=== PATIENT | male | born 1955 | race Caucasian/White ===

== ENCOUNTER 2020-01-12 11:11 | Observation (INO) ==
--- NOTE | 2020-01-05 13:20 | History and Physical Report ---
DATE OF ADMISSION: 01/12/2020 CHIEF COMPLAINT: Persistent left knee pain and discomfort. HISTORY OF PRESENT ILLNESS: The patient is a 64-year-old gentleman who presents for surgical treatment of his left knee. He has got a long history of left knee pain and discomfort dating back to over 10 years ago. He has been seeing my partner, Dr. Leger, for this over the years. He has been through extensive conservative treatment including both steroid shots and viscosupplementation, which have become less successful over time. Pain is a little bit more medial, but mostly global. The more he walks, the more it hurts. He has a limited walking tolerance. He has difficulty going up and down stairs. He has lost significant weight about 45 pounds recently trying to make his knee better. Unfortunately, his symptoms have not improved. Denies any groin pain. PAST MEDICAL HISTORY: Significant for: 1. Atrial fibrillation, on Coumadin. 2. BPH. 3. Elevated cholesterol. 4. Hypertension. 5. Osteoarthritis. PAST SURGICAL HISTORY: Includes: 1. Rotator cuff for repair. 2. Colonoscopy. 3. EGD. 4. Oral surgery. 5. Hernia repair. 6. Meniscal surgery. ALLERGIES: PENICILLIN. CURRENT MEDICATIONS: Include: 1. Aspirin. 2. Lovastatin. 3. Losartan. 4. Niacin. 5. Omeprazole. 6. Tamsulosin. 7. Coumadin. SOCIAL HISTORY: A 64-year-old male. He is not , but does have a girlfriend. He has family that can assist in his care. Denies any history of smoking. FAMILY HISTORY: Noncontributory. REVIEW OF SYSTEMS: Significant for atrial fibrillation, on Coumadin. Denies any chest pain or shortness of breath. No history of DVT or PE. No known bleeding problems. No dysuria. PHYSICAL EXAMINATION: GENERAL: Shows a pleasant, middle-aged male, looks to be in pretty good health. HEENT: Benign. NECK: Supple, no lymphadenopathy. LUNGS: Clear to auscultation. HEART: Has an irregularly irregular rhythm. Normal rate. ABDOMEN: Fairly large with a large pannus. Otherwise, benign. EXTREMITIES: Examination of the extremities reveals the patient walks independently. He has got varus alignment to his left knee. He has got a small healed abrasion over his tibial tubercle. Small knee effusion. He is tender over the medial joint line. Range of motion is 5-125 degrees. There is no instability. He has no pain with hip motion. X-RAYS: X-rays of the left knee were reviewed. It shows advanced left knee medial compartment arthritis. He has got complete loss of his medial joint space. He has got a little bit of tibial femoral subluxation. He has got osteophytes primarily in the medial compartment. ASSESSMENT: A 64-year-old male with advanced left knee degenerative joint disease. Also, has a history of chronic atrial fibrillation, obesity, hypertension, and elevated cholesterol. He has had a weight loss recently, but continues to be limited by his symptoms. He would like to have his knee fixed. PLAN: We will take him to the operating room and do a left total knee replacement. The risks and benefits of this procedure were explained to the patient including but not limited to DVT, PE, , infection, neurological injury, vascular injury, bleeding problem, pain, limited range of motion, stiffness, failure to relieve his symptoms, incomplete relief of symptoms, need for further surgery in the future, fracture, leg length inequality, nerve palsy, need for revision surgery. The patient understands and desires to proceed. Informed consent was obtained. He is on Coumadin, will stop it 5 days preop. We will need to check a stat PT and INR on the morning of surgery. We will start him on this immediately postop. As far as discharge plans, he is planning to be discharged home using the [facility]. He has a friend, I believe, that works for them and will assist in his care.
--- NOTE | 2020-01-05 13:59 | Anesthesiology Consultation ---
Date of Service January 05, 2020 Assessment & Plan (1) Encounter for pre-operative examination: Chart Review Chart Review: Acceptable Risk for Surgery (pending Covid test results from 01/03) and Patient NOT seen in Pre Admission Testing Per nursing assessment 01/05/20- - pt has had no recent travel. No known contact with PUIs or Covid positive people. No current Covid related symptoms. Pt had Covid testing done 01/03 per surgeon request for pre op- results pending. History Surgery Operation Date: 01/12/20 08:50 Proposed Procedures p Left Total Knee Arthroplasty - Joel Hubbard MD Height/Weight Height: 5 ft 6 in Weight: 115.212 kg Allergies Allergy/AdvReac Type Severity Reaction Status Date / Time Penicillins Allergy Unknown Unknown in Verified 01/05/20 12:39 childhood acetaminophen [From Percocet] AdvReac Dizziness Verified 01/05/20 12:40 oxycodone [From Percocet] AdvReac Dizziness Verified 01/05/20 12:40 Medications Home Medications Medication Instructions Recorded Confirmed Last Taken aspirin 81 mg PO QPM 09/21/18 01/05/20 08/29/19 21:00 losartan 100 mg PO QAM 09/21/18 01/05/20 08/29/19 lovastatin 40 mg PO QPM 09/21/18 01/05/20 08/29/19 niacin [Slo-Niacin] 500 mg PO QPM 09/21/18 01/05/20 08/29/19 warfarin 2.5 mg PO 2XWK 09/21/18 01/05/20 08/24/19 warfarin 5 mg PO 5XWK 09/21/18 01/05/20 08/24/19 tamsulosin 0.4 mg PO QPM 08/22/19 01/05/20 08/29/19 Wheeled Walker #1 ea 12/12/19 12/12/19 Unknown Past Medical History Medical History 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 BPH (benign prostatic hyperplasia) Hyperlipidemia Hypertension Left knee DJD On anticoagulant therapy on warfain daily Osteoarthritis Past Family History Family History Other No family history of adverse response to anesthesia Past Surgical History Surgical History History of colonoscopy History of esophagogastroduodenoscopy (EGD) History of repair of right rotator cuff History of right inguinal hernia repair History of tooth extraction History of wisdom tooth extraction Hx of left inguinal hernia repair Status post medial meniscus repair right Social History Smoking Status: Former smoker tobacco type: smokeless tobacco Do You Dip or Chew Tobacco: Yes Hx Alcohol Use: No Hx Substance Use: No substance use type: does not use Testing Laboratory Results Blood Type O Negative 12/28/19 09:32 Antibody Screen NEGATIVE 12/28/19 09:32 Laboratory Tests 12/28/19 12/28/19 12/28/19 09:32 09:32 09:32 WBC 3.99 L Hgb 14.9 Hct 44.0 Plt Count 180 PT 37.8 H INR 3.9 H Sodium 139 Potassium 4.8 Chloride 107 Carbon Dioxide 26 BUN 17 Creatinine 1.12 Glucose 94 Electrocardiogram Date: 12/28/19 Findings: + AFIB @ (84) Nonspecific ST abnormality Chest X-Ray Date: 12/28/19 Findings: + NAD Atherosclerosis of the aortic arch.
[~2020-01-12 11:11] MED LIST: ACETAMINOPHEN 500 MG TAB PO SCH; BUPIVACAINE 0.25% 30 ML VIAL ONE; BUPIVACAINE 0.5 % 5 MG/1 ML PF 10ML VIAL ONE; BUPIVACAINE LIPOSOME/PF 266 MG, BUPIVACAINE/EPINEPHRINE 50 ML, SODIUM CHLORIDE 0.9% 30 ... INFIL SCH; CEFAZOLIN 2000MG 2,000 MG/15 ML SYR IV SCH; FAMOTIDINE 20 MG TAB PO SCH; GABAPENTIN 300 MG CAP PO SCH; LR 500ML BOLUS, THEN 15ML/HR IV SCH; LR 60ML/HR IV SCH; METOCLOPRAMIDE HCL 10 MG TABLET PO SCH; SCOPOLAMINE 1.5 MG TDSY TD SCH; TRANEXAMIC ACID 1,000 MG **IV Intra-op IV SCH; TRANEXAMIC ACID 1,000 MG x 1 **For Topical Use TOP SCH
[2020-01-12] MEDS ORDERED: MIDAZOLAM HCL 1 MG/ML 2ML VIAL ONE (11:34)
[2020-01-12] MEDS ORDERED: fentaNYL citrate 100 MCG/2 ML VIAL ONE (11:35)
[2020-01-12 12:11] LABS: INR 1.2 (0.9-1.1); Partial Thromboplastin Ratio 1.1; Partial Thromboplastin Time 29.5 Seconds (21.0-31.0); Prothrombin Time 12.4 Seconds (9.0-12.0)
[2020-01-12] MEDS ORDERED: ePHEDrine sulfate 50 MG/ML AMP IV PRN (12:27)
[2020-01-12] MEDS ORDERED: ATROPINE SULFATE 0.1 MG/ML 10ML SYR IV PRN (12:27)
--- NOTE | 2020-01-12 12:42 | History & Physical Bridge Note ---
Date of Service January 12, 2020 History & Physical Bridge Note I have examined the patient, reviewed the History & Physical and in the interval since the performance of the History & Physical I have noted the following changes of clinical significance: no changes noted
[2020-01-12] MEDS ORDERED: BUPIVACAINE/EPINEPHRINE 0.25% 1:200,000 30 ML VIAL ONE (12:47)
[2020-01-12] MEDS ORDERED: SODIUM CHLORIDE 0.9% PF 50 ML VIAL ONE (12:47)
[2020-01-12] MEDS ORDERED: EPINEPHrine INJ 1 MG/ML AMP ONE (12:47)
[2020-01-12] MEDS ORDERED: BUPIVACAINE 0.25% 30 ML VIAL ONE (12:47)
[2020-01-12] MEDS ORDERED: BACITRACIN INJ 50,000 UNIT VIAL ONE (12:48)
[2020-01-12] MEDS ORDERED: BUPIVACAINE LIPOSOME 1.3% 266 MG/20 ML VIAL ONE (12:48)
[2020-01-12] MEDS ORDERED: PROPOFOL IV EMULSION 10 MG/ML 20 ML VIAL IV ONE (13:17)
[2020-01-12] MEDS ORDERED: PHENYLEPHRINE 100MCG/ML 5ML SYR ONE (13:21)
[2020-01-12] MEDS ORDERED: ePHEDrine sulfate 50 MG/ML SYR ONE (13:21)
--- NOTE | 2020-01-12 14:51 | Post Operative Brief Note ---
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 Left Knee Bone and Tissue Drains Quach Catheter Anesthesia Type Spinal MAC Complications none Disposition Accompanied Patient To Recovery: No Disposition: Recovery Room
--- NOTE | 2020-01-12 15:14 | Operative Report ---
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 His lateral compartment was pretty well spared. Moderate-sized joint effusion. He had a fixed varus deformity to his knee. Fluids 1700 cc Specimens Left knee sent for pathology. Drains None. Anesthesia Type Spinal MAC Complications none Disposition Accompanied Patient To Recovery: No Disposition: Recovery Room Indications Patient is a 64-year-old gentleman is had a long history of left knee pain discomfort. He has been through extensive conservative treatment over time which became less successful. X-rays show advanced left knee DJD. He failed all conservative measures and elected proceed with left total knee arthroplasty. Description of Procedure Operative implants consisted of: 1. Biomet Vanguard size 70 left posterior by femoral component. 2. Biomet size 75 tibial tray. 3. 10 mm posterior box polyethylene insert. 4. 31 x 8 all poly-patella. Patient was taken to the operating room identified and placed on the operating table supine position protectors were properly padded. IV antibiotics were 5 by anesthesia team. A spinal anesthetic and abductor canal block had provided holding area. Quach catheter was placed in sterile fashion. A left thigh turn was then placed in the left lower extremities and prepped draped in usual sterile fashion. The left leg was elevated and exsanguinated use of an Esmarch interspace at 3 mmHg. An anterior approach of left knee was then performed to longitudinal incision centered over the patella. Sharp dissection was gone through subcutaneous tissue down over the extensor mechanism. A medial parapatellar arthrotomy incision was made. Some subperiosteal dissection was carried out medially. The fat pad resected from each patella tendon. Lateral patellofemoral ligament was released. Patella was subluxated laterally and the knee was flexed. The osteophytes were taken off the distal femur. The ACL and PCL were then released from distal femur the tibia subluxate anteriorly. External tibial alignment jig was then placed in the interface the tibia and adjusted 14 mm medially. Proximal tibial cut was made to move out a millimeter bone at most from the most efficient aspect medial tibial plateau. Some oste ophytes were taken off medial and posterior medially. The tibia sized to a size 75. Attention drawn the femur. The distal femur was entered with a sharp drill. Intramedullary canal was suction. A left 6 degree valgus cutting guide was placed. Distal femoral cutting block was pinned in place. Distal femoral cut was made to take an additional 3 mm of bone off the distal femur. The femur was then sized to a size 70. The AP cutting block was pinned parallel to the epicondylar axis which was 5 degrees of external rotation. Anterior cut, anterior chamfer, posterior cut, posterior chamfer cuts were made. Box cutting guide was placed in just slight lateral and the box cut was made. The knee was flexed. The remnants of the medial lateral menisci were excised. The osteophytes were taken off the posterior aspect of the femur. A trial femoral component was placed. The tibial tray was pinned in maximum external rotation and the drill and stem punch were used to create defect in proximal tip for the tibial tray. Knee was then trialed and the 10 mm insert fit most appropriately. Attention drawn the patella. The patella was cleaned of all soft tissues. Patella thickness measured 22 mm in thickness was cut down to 13. Was sized to a size 31 patella. Locals were drilled for 31 patella. The lateral osteophyte was removed. Patella button was placed. Knee was taken through range of motion patella tracked nicely with no thumbs test. Attention was then drawn to place the permanent components. All trial components were removed. A bone plug was placed in the distal femur limit blood loss put a double batch [place]os G cement was mixed. A Biomet Vanguard size 70 left posterior by femoral component, size 75 tibial tray, 10 mm posterior box polyethylene insert, and a 31 x 8 all poly-patella then cement in place. Knee was brought out into full extension total cement hardened. Final cement check was then performed. Pericapsular tissues were injected with a total of 100 cc of combination of 20 cc of Exparel, 30 cc normal saline, 50 cc of quarter percent Marcaine with epinephrine. Patient did receive 1 g of tranexamic acid. The tourniquet was then let down for final tourniquet time of 56 minutes. Hemostasis assured use electrocautery. Wounds once again irrigated. Extensor mechanism then closed with combination 1 PDS suture #1 Vicryl suture in [id number] fashion. Extensor mechanism checked found to be intact the subcutaneous tissue then closed with 2 Dexon suture buried fascia skin was closed skin zoe. Leg was then cleaned dried a sterile dressing composed Xeroform, 4 x 4's, sterile cast padding, Lars bandage were applied. Patient then transferred to the recovery room in stable condition. Patient tolerated procedure well no complication. All needle sponge counts were correct at the end the operation I attest to the content of the Intraoperative Record and any orders documented therein. Any exceptions are noted below.
--- NOTE | 2020-01-12 15:18 | XRay Report ---
XR knee LT 1 or 2V routine CLINICAL HISTORY: Surgical Post Op COMPARISON: None. DISCUSSION: Anatomic alignment posttotal left knee arthroplasty. Could contact between prosthetic and underlying bone. Expected postoperative soft tissue change. IMPRESSION: Anatomic alignment posttotal left knee arthroplasty. ACT 112: Negative or not required by law. The above report was generated using voice recognition software. It may contain grammatical, syntax or spelling errors. Electronically signed by: Wes Vera M.D. 01/12/2020 3:17 PM
--- NOTE | 2020-01-12 15:41 | Anesthesiology Progress Note ---
Date of Service January 12, 2020 Anesthesia Post Procedure Vital Signs Vital Signs: Temp Pulse Pulse Resp BP BP Pulse Ox 01/12/20 15:35 72 16 96/65 L 95 01/12/20 15:25 72 14 93/66 L 94 01/12/20 15:15 75 16 98/62 L 95 01/12/20 15:05 85 18 99/69 L 98 01/12/20 14:57 36.4 C L 89 16 101/72 97 01/12/20 11:42 36.7 C 87 18 120/91 99 Transfer of Care Handoff Completed per policy Notes Mental Status: alert / awake / arousable and participated in evaluation Patient Amnestic to Procedure: Yes Nausea / Vomiting: adequately controlled Pain: adequately controlled Airway Patency, RR, SpO2: stable & adequate BP & HR: stable & adequate Hydration State: stable & adequate Anesthetic Complications: no major complications apparent and Pt Satisfied with anesthetic care
[2020-01-12] MEDS ORDERED: ONDANSETRON INJ 2 MG/ML 2 ML VIAL IV PRN (16:16)
[2020-01-12] MEDS ORDERED: NALOXONE HCL 0.4 MG/1 ML VIAL/CARP IV PRN (16:16)
[2020-01-12] MEDS ORDERED: HYDROmorphone INJ 0.5 MG/0.5 ML SYR IV PRN (16:16)
[2020-01-12] MEDS ORDERED: WARFARIN SOD 7.5 MG TAB PO ONE (16:16)
[2020-01-12] MEDS ORDERED: METOCLOPRAMIDE HCL INJ 5 MG/ML 2 ML VIAL IV PRN (16:16)
[2020-01-12] MEDS ORDERED: ALUMINUM/MAGNESIUM SUSP 30 ML UDC PO PRN (16:16)
[2020-01-12] MEDS ORDERED: MAGNESIUM HYDROXIDE SUSP 30 ML UDC PO PRN (16:16)
[2020-01-12] MEDS ORDERED: bisacodyL 10 MG SUPP PR PRN (16:16)
[2020-01-12] MEDS: CHECK SCOPOLAMINE PATCH PLACEMENT SCH ×2 (16:53→23:25)
[2020-01-12] MEDS: SODIUM CHLORIDE 0.9% 1000ML 1,000 ML IV SCH (16:54)
[2020-01-12] MEDS: FERROUS GLUCONATE 324 MG TAB PO SCH (18:26)
[2020-01-12] MEDS: ASCORBIC ACID 500 MG TAB PO SCH (18:27)
[2020-01-12] MEDS: KETOROLAC TROMETHAMINE 15 MG/ML VIAL IV SCH ×2 (18:45→23:24)
[2020-01-12] MEDS: ASPIRIN 81 MG ECTAB PO SCH (20:37)
[2020-01-12] MEDS: SENNA 8.6 MG TAB PO SCH (20:38)
[2020-01-12] MEDS: DOCUSATE SODIUM 100 MG CAP PO SCH (20:38)
[2020-01-12] MEDS ORDERED: TRANEXAMIC ACID / 0.7% NACL 1,000 MG/100 ML BAG IV SCH (21:00)
[2020-01-12] MEDS ORDERED: HYDROmorphone HCL 2 MG TAB PO PRN (21:50)
[2020-01-12] MEDS: LOVASTATIN 20 MG TAB PO SCH (22:01)
[2020-01-12] MEDS: ACETAMINOPHEN 500 MG TAB PO SCH (22:01)
[2020-01-12] MEDS: NIACIN EXTENDED REL 500 MG TABCR PO SCH (22:02)
[2020-01-12] MEDS: TAMSULOSIN HCL 0.4 MG CAP PO SCH (22:03)
[2020-01-12] MEDS: CEFAZOLIN 2000MG 2,000 MG/15 ML SYR IV SCH (22:03)
[2020-01-13] MEDS: SODIUM CHLORIDE 0.9% 1000ML 1,000 ML IV SCH (00:40)
[2020-01-13] MEDS: CEFAZOLIN 2000MG 2,000 MG/15 ML SYR IV SCH (04:59)
[2020-01-13] MEDS: KETOROLAC TROMETHAMINE 15 MG/ML VIAL IV SCH ×4 (05:06→23:42)
[2020-01-13] MEDS: ACETAMINOPHEN 500 MG TAB PO SCH ×3 (05:06→22:05)
[2020-01-13 07:04] LABS: Hematocrit (blood only) 34.2 % (42-52); Hemoglobin 11.5 g/dL (14.0-18.0); Mean Corpuscular Hemoglobin 30.9 pg (25-34); Mean Corpuscular Hgb Conc 33.6 g/dL (32-36); Mean Corpuscular Volume 91.9 fL (80-100); Mean Platelet Volume 9.3 fL (7.4-10.4); Platelet Count 148 K/uL (130-400); RDW Coefficient of Variation 13.8 % (11.5-14.5); RDW Standard Deviation 45.5 fL (36.4-46.3); Red Blood Count 3.72 M/uL (4.7-6.1); White Blood Count 6.15 K/uL (4.8-10.8)
[2020-01-13 07:24] LABS: INR 1.3 (0.9-1.1); Prothrombin Time 13.3 Seconds (9.0-12.0)
[2020-01-13 07:32] LABS: BUN Creatinine Ratio 14.1 (10-20); Calcium 7.9 mg/dl (8.5-10.1); Creatinine Clr Calc Pharmacy 85.1 ml/min; Est GFR (African American) 87.3; Est GFR (Non-African American) 75.3; Potassium 4.2 mmol/L (3.5-5.1)
[2020-01-13] MEDS: CHECK SCOPOLAMINE PATCH PLACEMENT SCH ×3 (07:32→23:42)
[2020-01-13] MEDS: FERROUS GLUCONATE 324 MG TAB PO SCH ×2 (08:52→17:46)
[2020-01-13] MEDS: DOCUSATE SODIUM 100 MG CAP PO SCH ×2 (08:53→20:39)
[2020-01-13] MEDS: ASCORBIC ACID 500 MG TAB PO SCH ×2 (08:53→17:46)
[2020-01-13] MEDS: MULTIVITAMIN TAB PO SCH (08:53)
--- NOTE | 2020-01-13 09:05 | Progress Notes ---
DATE: 01/13/2020 SUBJECTIVE: A 64-year-old gentleman postop day 1 from a left knee replacement. He is doing pretty well. Had a pretty good night. In fairly mild pain. No chest pain or shortness of breath. Not feeling dizzy or lightheaded. OBJECTIVE: VITAL SIGNS: Temperature 36.4. Vital signs stable. GENERAL: Shows an obese middle-aged male. He is lying in bed and I had to wake him this morning. Looks pretty comfortable. LUNGS: Clear to auscultation. HEART: Has a regular rate and rhythm. ABDOMEN: Soft, nontender, nondistended. EXTREMITIES: Grossly neurovascularly intact except as follows: Examination of the left lower extremity reveals the leg to be well aligned. He can dorsiflex and plantarflex his foot appropriately. He is neurologically intact. LABORATORY DATA: Hemoglobin 11.5. Hematocrit 34.2. Electrolytes are pending. ASSESSMENT: A 64-year-old gentleman postoperative day 1 from a left knee replacement, doing pretty well. Pain seems to be controlled. He is neurologically intact. PLAN: 1. DVT prophylaxis including thigh-high TEDs, SCDs, and resume coumadin giving loading dose today. 2. PT/OT. Weight bear as tolerated. Left total knee protocol. 3. Pain control, doing pretty well with current pain regimen. 4. Disposition: He is hoping to be discharged to home. He does live by himself. He has a friend who does home health who is going to do home health for him. We will see how therapy goes today as far as discharge plans. RYAN
[2020-01-13] MEDS: LOSARTAN POTASSIUM 50 MG TAB PO SCH (10:23)
[2020-01-13] MEDS ORDERED: WARFARIN SOD 7.5 MG TAB PO STA (18:41)
[2020-01-13] MEDS: ASPIRIN 81 MG ECTAB PO SCH (20:39)
[2020-01-13] MEDS: SENNA 8.6 MG TAB PO SCH (20:39)
[2020-01-13] MEDS: TAMSULOSIN HCL 0.4 MG CAP PO SCH (21:46)
[2020-01-13] MEDS: NIACIN EXTENDED REL 500 MG TABCR PO SCH (21:46)
[2020-01-13] MEDS: LOVASTATIN 20 MG TAB PO SCH (21:46)
[2020-01-14] MEDS: KETOROLAC TROMETHAMINE 15 MG/ML VIAL IV SCH (05:15)
[2020-01-14] MEDS: ACETAMINOPHEN 500 MG TAB PO SCH (05:15)
[2020-01-14 06:02] LABS: INR 1.7 (0.9-1.1); Prothrombin Time 17.2 Seconds (9.0-12.0)
[2020-01-14] MEDS: CHECK SCOPOLAMINE PATCH PLACEMENT SCH (07:18)
[2020-01-14] MEDS: LOSARTAN POTASSIUM 50 MG TAB PO SCH (07:19)
[2020-01-14] MEDS: ASCORBIC ACID 500 MG TAB PO SCH (07:19)
[2020-01-14] MEDS: FERROUS GLUCONATE 324 MG TAB PO SCH (07:19)
[2020-01-14] MEDS: MULTIVITAMIN TAB PO SCH (07:19)
[2020-01-14] MEDS: DOCUSATE SODIUM 100 MG CAP PO SCH (07:20)
--- NOTE | 2020-01-14 08:46 | Progress Notes ---
DATE: 01/14/2020 SUBJECTIVE: A 64-year-old gentleman postop day 2 from left knee replacement. He is doing pretty well. Feels like he is ready to go home. Pain is controlled. No chest pain or shortness of breath. Not feeling dizzy or lightheaded. OBJECTIVE: VITAL SIGNS: Temperature 36.6. Vital signs stable. GENERAL: Physical examination shows a pleasant, middle-aged male. He is lying in bed, looks pretty comfortable. EXTREMITIES: Examination of left leg reveals the dressing to be clean, dry and intact. Leg is well aligned. He can dorsiflex and plantarflex his foot appropriately. He is neurologically intact. LABORATORY DATA: INR is 1.7 this morning. ASSESSMENT: A 64-year-old gentleman with history of atrial fibrillation, postop day 2 from left knee replacement, doing pretty well. His pain is controlled. He is neurologically intact. PLAN: 1. DVT prophylaxis include thigh-high TEDs, SCDs, and back on Coumadin. He is at near therapeutic level. 2. PT/OT, weight bear as tolerated. Left total knee protocol. 3. Pain control, doing well with current pain regimen. 4. Disposition: Plan to discharge to home with some home health likely later today.
[2020-01-14] MEDS ORDERED: WARFARIN SOD 2.5 MG TAB PO ONE (16:00)
--- NOTE | 2020-01-16 15:53 | Discharge Summary ---
Date of Service January 16, 2020 Admission HPI Per Admitting Provider Documented in the admission H&P Admission Exam (Per Admitting) Constitutional Documented in the admission H&P Discharge Data Consultations 01/12/20 16:16 Consult Case Management - Discharge Planning Routine Procedures Performed Operation Date: 01/12/20 13:10 Actual Procedures p Left Total Knee Arthroplasty(Left) - Joel Hubbard MD Hospital Course (1) Status post total left knee replacement: 64-year-old male admitted on 01/12/2020 and underwent total knee arthroplasty. He tolerated the procedure well. There were no complications. He was transferred to the PACU postoperatively and later to the orthopedic for further care. He was given Ancef for antibiotic prophylaxis. He was given MAJO stockings, SCDs, and Coumadin for DVT prophylaxis. INR was monitored daily and Coumadin dose accordingly. Hemoglobin, hematocrit, vital signs were monitored during his hospital stay remained stable. Not acquiring blood transfusions. There were no complications. Postoperative day 2 he is tolerating a regular diet. Pain was controlled with oral pain medicine. He is participating in physical therapy. On postop day 2 was discharged home and set up with home health services. He is given printed discharge instruction as well as new prescription for Tylenol and hydromorphone. Continue MAJO stockings and Coumadin for DVT prophylaxis. Continue physical therapy. He is weightbearing as tolerated. Follow-up in approximately 2 weeks postoperatively or sooner if there are any problems or concerns. Coding Level of Care Code None Diagnoses Status post total left knee replacement Z96.652
== END 2020-01-14 11:15 | disposition home health service (06) ==
LOC: 3E 11:11 → ASU 11:11